=== PATIENT | female | born 1955 ===

== ENCOUNTER 2017-04-10 06:53 | Day surgery (SDC) | payer MEDICAID ==
[2017-04-10 07:24] VITALS: BMI 29.0
[2017-04-10] MEDS ORDERED: Propofol 10 mg/ml Inj (20 ML) ONE (09:11)
[2017-04-10 09:45] VITALS: TEMP 97.9; O2SAT 100
[2017-04-10 10:55] VITALS: BP 137/78; PULSE 58; RESP 16
== END 2017-04-10 10:53 | disposition home or self-care (01) ==
LOC: C.ENDO 06:53
PROVIDERS: ATTEND Internal Medicine
DX: Z12.11 Encounter for screening for malignant neoplasm of colon (principal); K63.5 Polyp of colon; K64.8 Other hemorrhoids
CPT/HCPCS: 45380; 88305; J2704